=== PATIENT | male | born 1965 | race Caucasian/White ===

== ENCOUNTER 2021-04-22 15:08 | Outpatient (REF) | payer MEDICAID, SELFPAY ==
--- NOTE | ~2021-04-22 | CT_ITS ---
EXAMINATION: CT CHEST WITHOUT CONTRAST CLINICAL INFORMATION: Right lung nodule. COMPARISON: Concurrent chest radiograph. TECHNIQUE: Multidetector volumetric CT imaging of the chest was done. Axial MIP volume rendering provided. Sagittal and coronal reformatted images were obtained. This CT examination was performed using dose optimization techniques as appropriate, variously including the following: *Automated exposure control *Adjustment of mA and/or kV according to patient size (this includes techniques or standardized protocols for targeted exams where dose is matched to indication/reason for exam; i.e. extremities or head) *Use of iterative reconstruction technique DLP: 142 mGy-cm FINDINGS: CMM OPERATOR: Unremarkable. LUNGS: There are mild emphysematous changes. There is a right upper lobe noncalcified nodule versus tiny mucus plug measuring 0.3 cm (axial image 229/555). There is a more central right upper lobe subpleural 0.3 cm nodule (axial image 259/555). A 0.4 cm subpleural nodule is seen along the right minor fissure (axial image 277/555). There is a lateral right lower lobe 0.6 cm noncalcified nodule (axial image 369/555). More centrally, there is a noncalcified right lower lobe nodule measuring 0.4 cm (axial image 403/555). There is a subpleural, somewhat lobulated noncalcified nodule within the left lingula measuring up to 0.7 cm (axial image 344/555) No large pulmonary mass or confluent airspace consolidation. The central airways are patent. MEDIASTINUM: No cardiomegaly. No pericardial effusion. No thoracic aortic dilatation. No superior mediastinal or hilar lymphadenopathy. Partially visualized and unremarkable thyroid. PLEURA: No pleural effusion or pneumothorax. AXILLA: No lymphadenopathy. UPPER ABDOMEN: Hepatic steatosis. Otherwise, the visualized upper abdominal structures are unremarkable. OSSEOUS STRUCTURES: Unremarkable. CT/CT chest wo con IMPRESSION: 1. Multiple bilateral pulmonary nodules with the largest measuring 0.7 cm within the left lingula. According to the UPDATED 2017 Fleischner Society recommendations, the advised followup imaging for multiple solid nodules, the largest measuring 6 mm or greater, is: LOW RISK PATIENT: CT at 3-6 months, then consider CT at 18-24 months. HIGH RISK PATIENT: CT at 3-6 months, then at 18-24 months. 2. Mild emphysematous changes. No large pulmonary mass. 3. No lymphadenopathy. 4. Hepatic steatosis.
== END 2021-04-22 15:09 | disposition home or self-care (01) ==
LOC: HO.CT 15:08
PROVIDERS: Visit Provider Internal Medicine
DX: R91.1 Solitary pulmonary nodule (principal)
CPT/HCPCS: 71250

== ENCOUNTER 2021-04-22 17:45 | Emergency (ER) | payer MEDICAID, SELFPAY ==
--- NOTE | ~2021-04-22 | XR_ITS ---
EXAMINATION: XR CHEST CLINICAL INFORMATION: Foreign body sensation. COMPARISON: None TECHNIQUE: 2 views of the chest were obtained. FINDINGS: Normal appearance of the cardiomediastinal silhouette. Clear lungs. No pleural effusions or pneumothorax. No radiopaque foreign bodies. No acute osseous findings. Thoracic spondylosis with mild body wedging in the mid thoracic spine, likely degenerative. XR/XR chest 2V IMPRESSION: No acute cardiopulmonary findings. No unexpected radiopaque foreign bodies.
--- NOTE | ~2021-04-22 | XR_ITS ---
EXAMINATION: XR SOFT TISSUE NECK CLINICAL INDICATION: Chicken bone in throat. COMPARISON: None TECHNIQUE: 2 views of the soft tissue neck were obtained. FINDINGS: There is a linear radiopaque foreign body at the prevertebral soft tissues of the neck in the area of the cervical esophagus at about 4 cm in length. This lies anterior to C5-C6 vertebrae. This is consistent with foreign body, chicken bone. No air in the prevertebral soft tissues or the soft tissues of the neck. No evidence of pneumomediastinum. The pharynx, Hypopharynx and proximal tracheal air columns are normal. The epiglottis is normal. There is degenerative disc height narrowing C6-C7 with vertebral endplate spurs. XR/XR soft tissue neck IMPRESSION: Linear radiopaque foreign body in the soft tissues of neck consistent with swallowed chicken bone in the cervical esophagus.
[2021-04-22 18:04] VITALS: PULSE 109; O2SAT 99
--- NOTE | 2021-04-22 18:14 | ED_ITS ---
HPI - Skin/Abscess/Foreign Bdy General Chief complaint: General Medical Stated complaint: FB IN THROAT Time Seen by Provider: 04/22/21 17:57 Source: patient Mode of arrival: EMS Limitations: no limitations History of Present Illness HPI narrative: 56-year-old male presents to the emergency department with a foreign body sensation in his throat X1 hour. States he was eating chicken crawford for dinner, any swallowed a chicken bone which he feels like it is stuck in his throat. He states that he is afraid to swallow, so he has been coughing up spit into a bag. He states he is having under left hand localized pain in his throat, where he feels that the chicken bone is. He denies shortness of breath, chest pain, abdominal pain. MD complaint: foreign body (? Chicken bone in fell) Onset (ago): hour(s) (1) Severity: severe Quality: sharp Pain Consistency: constant Relieving factors: none Exacerbating factors: none Context: other (eating dinner ) Associated symptoms: denies other symptoms Treatments prior to arrival: none Related Data Allergies Allergy/AdvReac Type Severity Reaction Status Date / Time No Known Allergies Allergy Unverified 03/27/20 15:01 Review of Systems Review of Systems: Constitutional : No Fever, No Chills, HEENT: + foreign body sensation in throat Cardiovascular : No Chest Pain, No SOB Respiratory : No Dyspnea Gastrointestinal : No abdominal pain Musculoskeletal : No Joint Swelling Skin : No rash, No skin laceration Neuro : No Weakness, No Numbness Psych : No SI/HI Neurologic: Reports Abnormal speech present COUNT INCLUDES THE [facility] Past Medical History Attestation statement: The following information was validated with the patient. Source: old records reviewed and nursing notes reviewed Social History Social History Advance Directives: No Advance Directives Information Provided: Yes Physical Exam Vital Signs: Vital Signs: Last Vital Signs Pulse Ox 97 04/22/21 18:23 Body Mass Index 28.0 Const: General: cooperative Nutritional Appearance: average body habitus Orientation/consciousness: oriented to person, oriented to place and oriented to time Limitations: no limitations HENMT: Head: Yes normal to inspection Mouth: Normal oral and palatal mucosa present Eyes: General: appearance normal, both eyes and all related structures Pupils: Equal, round and reactive pupils present EOM: EOMs intact bilaterally Neck: Neck: Yes normal visual inspection and Yes full ROM Thyroid: Thyroid normal Lymphatic: no lymphadenopathy noted Resp: Effort & Inspection: normal respiratory effort and able to speak in complete sentences Auscultation: clear to auscultation bilaterally Cardio: Palpation: normal PMI Rate: regular rate Rhythm: regular rhythm and abnormal rhythm Heart sounds: S1 normal heart sound present and S2 normal heart sound present GI: Inspection: Yes normal to inspection Palpation (GI): Soft to palpation and nontender : General: Yes no CVA tenderness Back/Spine/Pelvis: Back: no CVA tenderness Neuro: General: oriented to person, oriented to place and oriented to time Cranial nerves: Yes CN's II-XII intact bilaterally and Yes Equal, round and reactive pupils present Cognition (Neuro): normal cognition Speech: Abnormal speech present Gait exam (Neuro): Normal gait present Motor exam (neuro): 5/5 motor strength present throughout Sensory Exam: Normal double simultaneous stimulation for sensation Extrem: General: Yes normal to inspection, Yes full ROM and Yes no pedal edema Psych: Other: Patient appears very anxious at this time. Mental Status: mental status grossly normal MDM - Skin/Abscess/Foreign Bdy MDM Narrative Medical decision making narrative: 48-year-old man presents emergency department with a foreign body sensation to his throat after eating crawford chicken for dinne r 1 hour ago. He states he thinks he swallowed a chicken bone. Upon physical examination the patient appears anxious, he is leaning over and stating that he does not want to swallow, because he is afraid to. Lungs are clear to auscultation bilaterally. He is speaking in full sentences. He is controlling secretions. He is in no acute distress. Soft tissue of neck and chest Xray has been ordered at this time to try and visualize any foreign bodies Imaging Data Chest x-ray: Attestation: I personally reviewed and interpreted this imaging study as follows: Radiologist's impression: FINDINGS: Normal appearance of the cardiomediastinal silhouette. Clear lungs. No pleural effusions or pneumothorax. No radiopaque foreign bodies. No acute osseous findings. Thoracic spondylosis with mild body wedging in the mid thoracic spine, likely degenerative. XR/XR chest 2V IMPRESSION: No acute cardiopulmonary findings. No unexpected radiopaque foreign bodies. Discharge Plan Discharge Clinical Impression: Feeling of foreign body in throat Patient Disposition: Home, Self-Care Additional Instructions: Follow-up with your primary care provider X-rays did not shower any chicken bones in your throat, or chest. Return to the emergency department with new or worsening symptoms Referrals: Bala Randolph MD [Primary Care Provider] - 2 days
[2021-04-22 18:23] VITALS: O2SAT 97; BMI 28.0
[2021-04-22] MEDS: Lidocaine HCl Viscous 2 % 15 ML SOLUTION 10 ML MUCOUS MEM (18:25)
== END 2021-04-22 19:02 | disposition home or self-care (01) ==
PROVIDERS: Emergency Provider Internal Medicine; PCP Internal Medicine
DX: T18.128A Food in esophagus causing other injury, initial encounter (principal); X58.XXXA Exposure to other specified factors, initial encounter; Y93.9 Activity, unspecified; Y92.9 Unspecified place or not applicable; Y99.9 Unspecified external cause status
CPT/HCPCS: 36415; 70360; 70490; 71046; 71250; 87635; 96360; 99283; 99285; J0330; J1100; J2250; J2405

== ENCOUNTER 2021-04-22 19:29 | Day surgery (SDC) | payer MEDICAID, SELFPAY ==
--- NOTE | ~2021-04-22 | CT_ITS ---
EXAMINATION: CT SOFT TISSUE NECK WITHOUT CONTRAST CLINICAL INFORMATION: Possible foreign body. COMPARISON: Soft tissue neck radiographs dated 04/22/2021. TECHNIQUE: Helical imaging was performed in the axial plane with generation of coronal and sagittal reformatted images. This CT examination was performed using dose optimization techniques as appropriate, variously including the following: *Automated exposure control *Adjustment of mA and/or kV according to patient size (this includes techniques or standardized protocols for targeted exams where dose is matched to indication/reason for exam; i.e. extremities or head) *Use of iterative reconstruction technique DLP: 439 mGy-cm FINDINGS: Within the most proximal aspect of the esophagus there is a V shaped osseous structures measuring up to 4.1 cm in craniocaudal dimension as well as 2.3 cm in ML dimension at its widest points. This is consistent with the wishbone or furcula. Approximately 0.5 cm of one of the left limb of the foreign body extends into the hypopharynx. There is minimal associated esophageal wall thickening. No esophageal wall perforation or extraluminal air. No cervical adenopathy is identified. The parotid glands are homogeneous in attenuation. The submandibular glands are normal. No contour abnormality or pathologic enhancement is seen within the oral cavity or pharyngeal mucosal space. The laryngeal structures are normal. The parapharyngeal fat is preserved. The carotid sheath vasculature opacify normally. No extra mucosal soft tissue mass or fluid collection is seen. No retropharyngeal fluid collection is seen. The thyroid gland is normal. The superior mediastinum is unremarkable. Mild emphysematous changes within the lung apices. The mastoid air cells and visualized portions of the paranasal sinuses are well-aerated. The temporomandibular joints are normal. No periapical disease is identified. No osseous abnormalities are seen. The imaged portions of the brain parenchyma are unremarkable. CT/CT soft tissue neck wo con IMPRESSION: Osseous body within the proximal esophagus which appears V-shaped, consistent with the wishbone or furcula. Approximately 0.5 cm of the left ilium extends into the hypopharynx with the remainder of the foreign body in the proximal esophagus. Minimal adjacent esophageal wall thickening without evidence of perforation. This critical result was discussed with Dr. Weinberg at 8:30 PM on 04/22/2021 and it was ascertained that the content and urgency of the report was understood at the time of direct communication.
--- NOTE | 2021-04-22 19:31 | ED.SKABFB ---
HPI - Skin/Abscess/Foreign Bdy General Chief complaint: Upper Respiratory Symptoms Stated complaint: foreign body Time Seen by Provider: 04/22/21 19:30 Source: patient Mode of arrival: ambulatory Limitations: no limitations History of Present Illness HPI narrative: Patient was eating dinner chicken crawford he felt like he ate chicken bone which got stuck in lower part of the throat was seen just prior to arrival discharged called back as final reports says possible chicken bone in upper part of esophagus. Patient returns to the emergency department, after receiving a phone call from us asking him to return after the final reading of the soft tissue x-ray came back questioning foreign body. He states he feels like the foreign body is no longer in the same location. He is in no acute distress. He reports he is a little anxious. Related Data Previous Rx's Medication Instructions Recorded aluminum-mag hydroxide-simethicone 10 ml PO Q6H PRN #30 ml 04/22/21 200 mg-200 mg-20 mg/5 mL oral susp (Maalox Advanced) Allergies Allergy/AdvReac Type Severity Reaction Status Date / Time No Known Allergies Allergy Unverified 03/27/20 15:01 Review of Systems Review of Systems: Constitutional : No Fever, No Chills, HEENT: + foreign body sensation in throat Cardiovascular : No Chest Pain, No SOB Respiratory : No Dyspnea Gastrointestinal : No abdominal pain Musculoskeletal : No Joint Swelling Skin : No rash, No skin laceration Neuro : No Weakness, No Numbness Psych : No SI/HI Neurologic: Reports Abnormal speech present [facility] Past Medical History Attestation statement: The following information was validated with the patient. Source: old records reviewed and nursing notes reviewed Social History Social History Advance Directives: No Physical Exam Vital Signs: Vital Signs: Last Vital Signs Temp 98 F 04/22/21 19:40 Pulse 74 04/22/21 19:40 Resp 20 04/22/21 19:40 BP 176/106 H 04/22/21 19:40 Pulse Ox 98 04/22/21 19:40 Const: General: cooperative Nutritional Appearance: average body habitus Orientation/consciousness: oriented to person, oriented to place and oriented to time Limitations: no limitations HENMT: Head: Yes normal to inspection Mouth: Normal oral and palatal mucosa present Eyes: General: appearance normal, both eyes and all related structures Pupils: Equal, round and reactive pupils present EOM: EOMs intact bilaterally Neck: Neck: Yes normal visual inspection, Yes full ROM and Yes other (No stridor) Thyroid: Thyroid normal Lymphatic: no lymphadenopathy noted Resp: Effort & Inspection: normal respiratory effort and able to speak in complete sentences Auscultation: clear to auscultation bilaterally Cardio: Palpation: normal PMI Rate: regular rate Rhythm: regular rhythm and abnormal rhythm Heart sounds: S1 normal heart sound present and S2 normal heart sound present GI: Inspection: Yes normal to inspection Palpation (GI): Soft to palpation and nontender : General: Yes no CVA tenderness Back/Spine/Pelvis: Back: no CVA tenderness Neuro: General: oriented to person, oriented to place and oriented to time Cranial nerves: Yes CN's II-XII intact bilaterally and Yes Equal, round and reactive pupils present Cognition (Neuro): normal cognition Speech: Abnormal speech present Gait exam (Neuro): Normal gait present Motor exam (neuro): 5/5 motor strength present throughout Sensory Exam: Normal double simultaneous stimulation for sensation Extrem: General: Yes normal to inspection, Yes full ROM and Yes no pedal edema Psych: Mental Status: mental status grossly normal Course Reevaluation(s) Reevaluation #1: Spoke to Dr. Weinberg, will call him back with CT results. Time: 19:44 Reevaluation #2: Case discussed with Dr. Weinberg binder coverstitch, chicken bone seems to be penetrating hypopharynx uncomfortable in doing the surgery alone and needs ENT help as they may have to pull it out with the risk of perforation in hypopharynx, bed placement at [facility] called, will call ENT at [facility] and will transfer once accepted Time: 20:34 Reevaluation #3: Case discussed with GI at [facility] advised GI to see the patient and remote of bone and if needed transfer to [facility] after the procedure Case discussed Dr. Weinberg will do endoscopy at [place] Time: 20:55 MDM - Skin/Abscess/Foreign Bdy MDM Narrative Medical decision making narrative: 56-year-old male returns to the emergency department about 20 minutes after being discharged, he reports a foreign body sensation in his throat. The final reading of the soft tissue neck questions of foreign body. For this reason he was called and asked to come back for further evaluation. Upon physical examination patient appears anxious, however is in no distress. He is speaking in full sentences. Controlling his secretions well. A CT of the neck has been ordered at this time. Imaging Data Ct neck: Radiologist's impression: [address] [address] [address] Scan Report Signed Patient: Rick Banks MR#: [id number] : 1965 Acct:[id number] Age/Sex: 56 / M ADM Date: 04/22/21 Loc: HO.ED Attending Dr: Ordering Physician: Shane Newman MD Date of Service: 04/22/21 Procedure(s): CT soft tissue neck wo con Accession Number(s): [id number] cc: Shane Newman MD~ EXAMINATION: CT SOFT TISSUE NECK WITHOUT CONTRAST CLINICAL INFORMATION: Possible foreign body.? COMPARISON: Soft tissue neck radiographs dated 04/22/2021.? TECHNIQUE: Helical imaging was performed in the axial plane with generation of coronal and sagittal reformatted images. This CT examination was performed using dose optimization techniques as appropriate, variously including the following: *Automated exposure control *Adjustment of mA and/or kV according to patient size (this includes techniques or standardized protocols for targeted exams where dose is matched to indication/reason for exam; i.e. extremities or head) *Use of iterative reconstruction technique DLP: 439 mGy-cm FINDINGS: Within the most proximal aspect of the esophagus there is a V shaped osseous structures measuring up to 4.1 cm in craniocaudal dimension as well as 2.3 cm in ML dimension at its widest points. This is consistent with the wishbone or furcula. Approximately 0.5 cm of one of the left limb of the foreign body extends into the hypopharynx. There is minimal associated esophageal wall thickening. No esophageal wall perforation or extraluminal air. No cervical adenopathy is identified. The parotid glands are homogeneous in attenuation. The submandibular glands are normal. No contour abnormality or pathologic enhancement is seen within the oral cavity or pharyngeal mucosal space. The laryngeal structures are normal. The parapharyngeal fat is preserved. The carotid sheath vasculature opacify normally. No extra mucosal soft tissue mass or fluid collection is seen. No retropharyngeal fluid collection is seen. The thyroid gland is normal. The superior mediastinum is unremarkable. Mild emphysematous changes within the lung apices. The mastoid air cells and visualized portions of the paranasal sinuses are well-aerated. The temporomandibular joints are normal. No periapical disease is identified. No osseous abnormalities are seen. The imaged portions of the brain parenchyma are unremarkable. CT/CT soft tissue neck wo con IMPRESSION: Osseous body within the proximal esophagus which appears V-shaped, consistent with the wishbone or furcula. Approximately 0.5 cm of the left ilium extends into the hypopharynx with the remainder of the foreign body in the proximal esophagus. Minimal adjacent esophageal wall thickening without evidence of perforation. ? This critical result was discussed with Dr. Weinberg at 8:30 PM on 04/22/2021 and it was ascertained that the content and urgency of the report was understood at the time of direct communication. ? Dictated By: SABINA DUMONT MD Signed By: <Electronically signed by SABINA DUMONT MD in OV> 04/22/212030 DD/ 30 TD/TT:? Jig Box Operator: Discharge Plan Discharge Clinical Impression: Esophageal foreign body Qualifiers: Encounter type: initial encounter Qualified Code(s): T18.108A - Unspecified foreign body in esophagus causing other injury, initial encounter Patient Disposition: Admitted As Inpatient
[2021-04-22 19:40] VITALS: BP 176/106; PULSE 74; RESP 20; TEMP 36.6; O2SAT 98
--- NOTE | 2021-04-22 19:47 | PC.NURSE ---
Pt maintaining airway, speaking in complete sentences, endorses sensation of FB moving up and down in throat. Provided w/ emesis bag, call light within reach, educated to call w/ new or worsening dyspnea/ dysphagia
[2021-04-22 21:05] LABS: COVID-19 Test Negative (Negative); IDNOW Serial# 9DD0AD1C
[2021-04-22] MEDS: 0.9 % Sodium Chloride 1,000 ML 999 ML IVCONT (21:14)
--- NOTE | 2021-04-22 22:00 | PC.NURSE ---
pt to OR in stable condition, bedside report given to OR RNs, partner at bedside in possession of pt valuables
--- NOTE | 2021-04-22 22:15 | MHC.SHP ---
Pre-Procedural Eval Section A Date of Service: 04/22/21 The patient is an INPATIENT: No Changes since office visit: No Cold of Flu in the past 2 weeks, No New Medical Problems, No Changes in Medication and No Patient answered all questions The History & Physical has been completed within 30 days and I have reviewed it.: Yes Section B Chief Complaint: foreign body Allergies: Allergies Allergy/AdvReac Type Severity Reaction Status Date / Time No Known Allergies Allergy Unverified 03/27/20 15:01 Plan I have reviewed the history and physical and performed a pertinent physical examination on my patient. No changes have occurred unless specified.
[2021-04-22 22:52] VITALS: BP 156/72; PULSE 78; RESP 17; TEMP 36.3; O2SAT 97
[2021-04-22 22:57] VITALS: BP 140/89; PULSE 80; RESP 20; O2SAT 97
--- NOTE | 2021-04-22 23:00 | P.CONAN_ITS ---
[facility] Active Problems Active Problems: All Active Problems (Updated 04/22/21 @ 22:18 by Argelia nicolas RN) Feeling of foreign body in throat (Acute) Esophageal foreign body (Acute) Past Medical History Medical History (Updated 04/22/21 @ 22:18 by Argelia Clark RN) BPH (benign prostatic hyperplasia) GERD (gastroesophageal reflux disease) High cholesterol HTN (hypertension) Lung nodules Surgical History Surgical History (Updated 04/22/21 @ 22:18 by Argelia Clark RN) Hx of colonoscopy Social History Social History Advance Directives: No Meds Allergies Allergy/AdvReac Type Severity Reaction Status Date / Time No Known Allergies Allergy Verified 04/22/21 22:18 Home Medications Medication Instructions Recorded Confirmed Last Taken Type atorvastatin 20 mg tablet 1 tab PO DAILY 04/22/21 04/22/21 Unknown History atovaquone 250 mg-proguanil 100 mg 1 tab PO DAILY 04/22/21 04/22/21 Unknown History tablet losartan 100 mg tablet 1 tab PO DAILY 04/22/21 04/22/21 Unknown History losartan 50 mg tablet 1 tab PO DAILY 04/22/21 04/22/21 Unknown History meloxicam 7.5 mg tablet 1 tab PO DAILY 04/22/21 04/22/21 Unknown History methocarbamol 500 mg tablet 500 mg PO BEDTIME 04/22/21 04/22/21 Unknown History naproxen 500 mg tablet 1 tab PO BID 04/22/21 04/22/21 04/22/21 08:00 History Exam Exam Date and Time: April 22, 2021 2300 Height,Weight and Vital Signs: Last Vital Signs Temp 98 F 04/22/21 19:40 Pulse 74 04/22/21 19:40 Resp 20 04/22/21 19:40 BP 176/106 H 04/22/21 19:40 Pulse Ox 97 04/22/21 22:52 Pertinent Lab Results Pertinent Lab Results: Laboratory Tests 04/22/21 20:39 COVID-19 ([facility]) Negative COVID-19 Clin Com See Note Airway Mallampati Class: II TM Dist: >3cm Neck ROM: Full Denture: Upper
[2021-04-22 23:02] VITALS: BP 158/92; PULSE 76; RESP 20; O2SAT 96
[2021-04-22 23:07] VITALS: BP 164/95; PULSE 73; RESP 20; O2SAT 99
[2021-04-22 23:22] VITALS: BP 144/92; PULSE 66; RESP 20; TEMP 36.1; O2SAT 96
--- NOTE | 2021-04-23 00:39 | OP_ITS ---
SURGEON: Vlad Weinberg MD INDICATIONS: Foreign body of the esophagus. PREOPERATIVE DIAGNOSIS: POSTOPERATIVE DIAGNOSIS: PROCEDURE PERFORMED: Upper endoscopy with removal of esophageal foreign body. ESTIMATED BLOOD LOSS: COMPLICATIONS: ANESTHESIA: ASSISTANTS: SPECIMENS: MEDICATIONS: General anesthesia. DESCRIPTION OF PROCEDURE: History and physical performed. The risks and benefits of the procedure were explained to the patient. Informed consent was obtained. The patient was placed in the left lateral decubitus position. The Olympus video gastroscope was introduced into the hypopharynx. The foreign body was removed and the endoscopy was performed. He tolerated the procedure well and was taken to recovery area in stable condition. FINDINGS: Immediately on evaluating the hypopharynx, there was a piece of bone extending above the upper esophageal sphincter approximately 5 to 10 mm into the hypopharynx consistent with the findings on CT scan. A snare was passed through the endoscope and used to grasp the foreign body and a large piece of bone was removed. There was a second smaller piece of bone, which was also identified in the pyriform sinus. To prevent aspiration and protect the airway, the patient underwent endotracheal intubation by Dr. Sinclair as the procedure had been started with propofol sedation. Next, the endoscope was reinserted and the smaller piece of bone was grasped with a snare and removed. Following this, endoscopy was performed. The esophagus appeared normal without any laceration or foreign body material. There was no esophagitis. Stomach: The stomach showed no masses, ulcers, or polyps. Duodenum: The bulb and second portion were normal. IMPRESSION: Esophageal foreign body as above. RECOMMENDATION: Follow up as needed. The patient is advised to avoid ingesting chicken bones. MD SARABJIT Mahan/YANETL / [id number] MTDD
--- NOTE | 2021-04-23 00:54 | CONS_ITS ---
DATE OF SERVICE: 04/22/2021 REFERRING PHYSICIAN: Shane Newman MD REASON FOR CONSULTATION: Foreign body of the esophagus. HISTORY OF PRESENT ILLNESS: The patient is a 56-year-old man, who was evaluated in the emergency room after he ate chicken with bone, which got stuck in the upper part of his esophagus. He denies prior history of dysphagia. He does have a history of reflux, but has not had a foreign body before. He presented to the emergency department, where he was evaluated with CT scanning and plain films, which show what appears to be a bone, foreign body involving the proximal esophagus, upper esophageal sphincter, and hypopharynx. He presents for upper endoscopy. PAST MEDICAL HISTORY: 1. Hypertension. 2. Elevated cholesterol. CURRENT MEDICATIONS: Losartan 100 mg daily. He also takes a statin at a dose of 20 mg. ALLERGIES: DENIES MEDICATION ALLERGIES. FAMILY HISTORY: This is reviewed with the patient and it is positive for diverticular disease in a brother. SOCIAL HISTORY: He smokes 1/3 of pack of cigarettes per day. He denies heavy alcohol use, but does drink 1 or 2 alcoholic drinks per day and did have 1 earlier today. REVIEW OF SYSTEMS: SKIN: No pruritus. HEENT: Negative. CARDIOPULMONARY: No shortness of breath or chest pain. GASTROINTESTINAL: As above. GENITOURINARY: Negative. NEUROPSYCHIATRIC: Negative. PHYSICAL EXAMINATION: GENERAL: Reveals a pleasant male, in no acute distress. VITAL SIGNS: Reviewed in the electronic medical record and are stable. SKIN: Anicteric. HEENT: Shows no scleral icterus. Oropharynx is benign. NECK: Without lymphadenopathy or thyromegaly. There is no crepitus. LUNGS: Clear. HEART: Shows a regular rate and rhythm. S1, S2. No murmur. ABDOMEN: Soft without focal masses or tenderness. Bowel sounds are present. No organomegaly is noted. EXTREMITIES: Without edema. ASSESSMENT AND PLAN: The patient was discussed with the ER physician. Tertiary care evaluation was recommended based on the patient's CT scan findings and [facility] was contacted. They declined to accept the patient and recommended that endoscopy be performed at this facility with the understanding that there is no ENT backup available. Risks and benefits of endoscopy were discussed with the patient who understands and agrees to proceed. MD SARABJIT Mahan/[facility] / [id number]
[2021-04-24 10:47] VITALS: BMI 25.0
== END 2021-04-23 00:01 | disposition home or self-care (01) ==
LOC: HO.ED 20:56 → HO.SSS 04-24 10:51
PROVIDERS: Emergency Provider Internal Medicine; PCP Internal Medicine; Visit Provider Internal Medicine Gastroenterology
PROC: 0DJ08ZZ Inspection of Upper Intestinal Tract, Via Natural or Artificial Opening Endoscopic (ICD-10-PCS; CPT 43235; principal; 2021-04-22 21:30)
DX: T18.128A Food in esophagus causing other injury, initial encounter (principal); X58.XXXA Exposure to other specified factors, initial encounter; Y93.89 Activity, other specified; Y92.9 Unspecified place or not applicable; Y99.8 Other external cause status; I10 Essential (primary) hypertension; E78.00 Pure hypercholesterolemia, unspecified; Z79.899 Other long term (current) drug therapy; Z20.822 Contact with and (suspected) exposure to COVID-19
CPT/HCPCS: 43215; 36415; 70360; 70490; 71046; 71250; 87635; 96360; 99283; 99285; J0330; J1100; J2250; J2405

== ENCOUNTER 2021-07-21 13:38 | Outpatient (REF) | payer MEDICAID, SELFPAY ==
--- NOTE | ~2021-07-21 | XR_ITS ---
EXAMINATION: XR HAND, RIGHT XR WRIST, RIGHT CLINICAL INFORMATION: Pain in bilateral hand. COMPARISON: None TECHNIQUE: 3 views right wrist and 4 views right hand. FINDINGS: RIGHT HAND: There is a loss of PIP joint space with moderate periarticular spurring 1st digit. Mild loss of DIP and PIP joint space seen of all digits with mild periarticular swelling DIP joint 4th and 5th digit is noted. No acute fracture, dislocation or subluxation seen. RIGHT WRIST: There is no acute fracture or dislocation seen. There is mild loss of 1st carpometacarpal joint space. There is a loose body adjacent to the ulnar styloid process, likely old injury. No acute fracture or dislocation seen. The soft tissues are normal at this time. XR/XR wrist RT min 3V IMPRESSION: Unremarkable right hand exam. No visible acute fracture or dislocation of the right wrist. There is a loose body seen adjacent to the ulnar styloid process, likely old injury.
--- NOTE | ~2021-07-21 | XR_ITS ---
EXAMINATION: XR HAND, RIGHT XR WRIST, RIGHT CLINICAL INFORMATION: Pain in bilateral hand. COMPARISON: None TECHNIQUE: 3 views right wrist and 4 views right hand. FINDINGS: RIGHT HAND: There is a loss of PIP joint space with moderate periarticular spurring 1st digit. Mild loss of DIP and PIP joint space seen of all digits with mild periarticular swelling DIP joint 4th and 5th digit is noted. No acute fracture, dislocation or subluxation seen. RIGHT WRIST: There is no acute fracture or dislocation seen. There is mild loss of 1st carpometacarpal joint space. There is a loose body adjacent to the ulnar styloid process, likely old injury. No acute fracture or dislocation seen. The soft tissues are normal at this time. XR/XR hand RT min 3V IMPRESSION: Unremarkable right hand exam. No visible acute fracture or dislocation of the right wrist. There is a loose body seen adjacent to the ulnar styloid process, likely old injury.
== END 2021-07-21 13:39 | disposition home or self-care (01) ==
LOC: HO.HOSX 13:38
PROVIDERS: PCP Internal Medicine; Visit Provider Orthopaedic Surgery
DX: M18.11 Unilateral primary osteoarthritis of first carpometacarpal joint, right hand (principal); M19.041 Primary osteoarthritis, right hand; R20.0 Anesthesia of skin; R20.2 Paresthesia of skin
CPT/HCPCS: 73110; 73130; 99202

== ENCOUNTER 2022-02-01 13:24 | Outpatient (REF) | payer MEDICAID, SELFPAY ==
[2022-02-01 14:48] LABS: Alanine Aminotransferase 65 U/L (0-40); Albumin Level 4.5 g/dL (3.5-5.0); Alkaline Phosphatase 106 U/L (39-117); Anion Gap 13 (12-20); Aspartate Amino Transferase 63 U/L (5-37); Bilirubin Total 0.6 mg/dL (0.0-1.0); Blood Urea Nitrogen 13 mg/dL (9-16); Calcium 9.7 mg/dL (8.4-10.2); Carbon Dioxide 27 mmol/L (22-29); Chloride 103 mmol/L (96-108); Estimated Glomerular Filt Rate > 60; Glucose Random 81 mg/dL (60-115); Potassium 3.5 mmol/L (3.3-5.1); Sodium 139 mmol/L (135-145); Total Protein 6.8 g/dL (6.5-8.0)
== END 2022-02-01 13:25 | disposition home or self-care (01) ==
LOC: HO.LAB 13:24
PROVIDERS: PCP Internal Medicine; Visit Provider Internal Medicine
DX: I10 Essential (primary) hypertension (principal); M19.90 Unspecified osteoarthritis, unspecified site
CPT/HCPCS: 36415; 80053